=== PATIENT | male | born 1950 | race Caucasian/White ===

== ENCOUNTER 2022-08-10 08:13 | Emergency (ER) | payer MEDICARE, OTHER, SELFPAY ==
--- NOTE | ~2022-08-10 | CT_ITS ---
EXAMINATION: CT abdomen pelvis w con DATE: 08/10/2022 11:10 INDICATION: Right lower quadrant abdominal pain. TECHNIQUE: Computed tomography (CT) of the abdomen and pelvis was performed with 100 cc Omnipaque 350 intravenous contrast. The dose-length product was 339.45 mGy-cm. Automated exposure control and iter ative reconstruction technique were employed. COMPARISON: None. FINDINGS: Lung bases are unremarkable. Heart size upper normal. No significant pleural or pericardial effusion. Moderate size hiatal hernia one way there are nonobstructing left renal stones. There is asymmetrically decreased enhancement of the right kidney which is appears enlarged. There is right perinephric fluid/stranding. There is right hydroureteronephrosis. There is an obstructing 4 m m distal right ureteral stone. Nonobstructive bowel gas pattern. There are gallstones. There is fatty infiltration of the liver. There is a duodenal diverticulum. There is a fat-containing left inguinal hernia. There is mild osteoarthritis of the hips. There is moderate lumbar spondylosis. IMPRESSION: 1. Obstructing 4 mm distal right ureteral stone with right hydroureteronephrosis and right perinephri c fluid/edema. 2: Nonobstructing left nephrolithiasis. 3: Cholelithiasis. 4: Moderate size hiatal hernia. Reviewed, dictated and finalized at location B. TIONAL SERVICES SPECIALIST IMPRESSION: 1. Obstructing 4 mm distal right ureteral stone with right hydroureteronephrosi s and right perinephric fluid/edema. 2: Nonobstructing left nephrolithiasis. 3: Cholelithiasis. 4: Moderate size hiatal hernia.
--- NOTE | ~2022-08-10 | XR_ITS ---
XR abdomen/kub 1V 08/10/2022 12:09 INDICATION: Distal right ureteral stone on prior CT TECHNIQUE: KUB COMPARISON: CT dated 08/10/2022 FINDINGS: Bowel gas pattern is normal. There is no evidence of free air, mass, organomegaly, ascites or obstruction. There is right hydronephrosis with ureter containing a standing column of contrast t o the level of the right UVJ. The bones appear intact. IMPRESSION: 1: Mild right hydronephrosis.. Reviewed, dictated and finalized at location B. IN[employer] M[employer] OPERATOR
[2022-08-10 08:16] VITALS: BP 185/92; PULSE 71; RESP 18; TEMP 36.6; O2SAT 99
--- NOTE | 2022-08-10 08:56 | ED.BACK ---
HPI - Back Pain/Injury General Chief Complaint: Back Pain/Injury Stated Complaint: flank pain Time Seen by Provider: 08/10/22 08:55 Source: patient Mode of arrival: ambulatory Limitations: no limitations History of Present Illness HPI Narrative: Patient is a 72 yo male with a history of diverticulitis, HTN, presenting to the ER for evaluation of right lower quadrant abdominal pain and right-sided flank pain. Pain is dull, aching in nature, at times sharp. It does radiate into the RLQ. Patient with associated nausea, dry heaving. He denies fever or chills. Patient reports history of chronic lower back pain, states no recent heavy lifting, bending injury, fall. Patient reports this pain is different than typical lower back pain. He denies focal weakness or numbness. He denies ripping or tearing sensation into the flank. He denies radiation of pain into the testicle. She denies significant abdominal distention. No dysuria or hematuria. Related Data Allergies Allergy/AdvReac Type Severity Reaction Status Date / Time No Known Allergies Allergy Verified 08/10/22 09:18 Review of Systems Review of Systems: CONSTITUTIONAL: Denies fever, chills, or sweats. EYES: Denies visual changes, redness, or discharge. ENT: Denies rhinorrhea, congestion, sore throat, or otalgia. CARDIOVASCULAR: Denies chest pain, palpitations, or edema. RESPIRATORY: Denies cough or dyspnea. GASTROINTESTINAL: Reports right lower quadrant abdominal pain, nausea, vomiting, reports right flank pain GENITOURINARY: Denies dysuria or hematuria. SKIN: Denies rash or itching. MUSCULOSKELETAL: Reports chronic lower back pain, denies other joint pain, or myalgia. NEUROLOGIC: Denies headache, numbness, or weakness. FOR[facility]LY [facility] Past Medical History Medical History (Updated 08/10/22 @ 12:33 by Melonie Diaz MD) Chronic lower back pain Diverticulitis Hypertension Social History Social History (Updated 08/10/22 @ 09:34 by Melonie Diaz MD) Alcohol intake: never Substance use: never Living arrangements: with family Gender identity (if verbalized by the patient): Male Exam Narrative: GENERAL: Awake, alert, conversant, patient comfortable appearing, pacing the room HEAD: Normocephalic, atraumatic. EYES: PERRLA and EOMI. ENT: Nares clear, no rhinorrhea or epistaxis. Mucous membranes moist. NECK: Supple. CHEST: No respiratory distress, breathing even and non labored HEART: Regular rate, sinus rhythm ABDOMEN:Non distended, right lower quadrant tenderness, mild right CVA tenderness, no left lower quadrant tenderness, no rebound, rigidity or guarding EXTREMITIES: Normal range of motion. No edema. SKIN: Warm, dry, no rash. NEURO:No focal deficits. Alert and oriented x3 Course Vital Signs Vital signs: Vital Signs Temperature 36.6 C 08/10/22 08:16 Pulse Rate 71 08/10/22 08:16 Respiratory Rate 18 08/10/22 08:16 Blood Pressure 185/92 H 08/10/22 08:16 Pulse Oximetry 99 08/10/22 08:16 Oxygen Delivery Room Air 08/10/22 08:16 Temperature 36.6 C 08/10/22 08:16 Pulse Rate 71 08/10/22 08:16 Respiratory Rate 18 08/10/22 08:16 Blood Pressure 185/92 H 08/10/22 08:16 Pulse Oximetry 99 08/10/22 08:16 Oxygen Delivery Room Air 08/10/22 08:16 MDM - Back Pain/Injury MDM Narrative Medical decision making narrative: Medical decision making narrative: -Presentation: Patient is 72-year-old male presenting for evaluation of right abdominal pain, right flank pain. At the time of assessment, patient is uncomfortable appearing, hypertensive. IV access obtained and labs were drawn. -DDX includes but is not limited to: Renal colic, perforation, obstruction, pyelonephritis, UTI -Co-morbidities complicating care: -Social determinants of health: -External Chart Review: External EMR record reviewed, no significant amount of additional records -Hx from independent Sources: Daughter is at bedside -Discussion of Management/
[2022-08-10 09:45] LABS: Alanine Aminotransferase 24 U/L (6-50); Albumin Level 4.5 g/dL (3.5-5.1); Alkaline Phosphatase 91 U/L (38-126); Anion Gap 9 mmol/L (8-16); Aspartate Amino Transferase 29 U/L (17-59); Bilirubin,Total 0.7 mg/dL (0.2-1.3); Blood Urea Nitrogen 18 mg/dL (9-20); Calcium 9.2 mg/dL (8.4-10.2); Carbon Dioxide 24 mmol/L (22-30); Chloride 106 mmol/L (98-107); Estimated CRCL calculation 45 ml/min; Estimated Glomerular Filt Rate 60; Glucose 148 mg/dL (65-110); Potassium 3.8 mmol/L (3.4-5.0); Sodium 139 mmol/L (137-145)
[2022-08-10] MEDS: SODIUM CHLORIDE 0.9% IV 1,000 ML 999 ML IV CONT (10:02)
[2022-08-10] MEDS: ONDANSETRON INJ 4 MG/2 ML VIAL IV PUSH (10:02)
[2022-08-10] MEDS: MORPHINE SULFATE (*CRX) 4 MG/ML INJ IV PUSH ×2 (10:02→10:31)
[2022-08-10 10:10] LABS: Basophils Absolute Auto 0.1 K/mm3 (0.0-0.1); Basophils Percent Auto 0.8 % (0.2-1.2); Eosinophils Absolute Auto 0.1 K/mm3 (0-0.3); Eosinophils Percent Auto 0.7 % (0-4.4); Hematocrit 46.2 % (42.0-52.0); Hemoglobin 15.1 g/dL (14.0-18.0); Immature Granulocyte Absolute 0.07 K/mm3 (0.00-0.031); Immature Granulocyte Percent A 0.6 % (0-0.5); Lymphocytes Percent Auto 14.4 % (18.3-44.2); Mean Corpuscular HGB Conc 32.7 g/dl (32-36); Mean Corpuscular Volume 88.7 fl (80-100); Mean Platelet Volume 11.4 fl (7.4-10.4); Monocytes Absolute Auto 0.5 K/mm3 (0.1-0.6); Neutrophils Absolute Auto 9.4 K/mm3 (1.3-6.7); Neutrophils Percent Auto 79.5 % (45.5-73.1); Platelet Count Result 232 k/mm3 (150-375); Red Blood Count 5.21 M/mm3 (4.6-6.20); Red Cell Distribution Width 12.8 % (11.5-14.5); White Blood Count 11.8 K/mm3 (4.5-10.0)
--- NOTE | 2022-08-10 10:34 | PC.NURSE ---
pt continues to c/o pain 03/28. states is worse s/p administration of morphine. pt refusing ct until pain is improved.
[2022-08-10 10:56] LABS: Lipase 72 U/L (23-300)
[2022-08-10 11:38] LABS: Add Urine Microscopic? YES; Appearance Urine Clear (Clear); Bilirubin Urine Negative (Negative); Blood Urine 2+ (Negative); Color Urine Yellow (Yellow); Glucose Urine UA Negative (Negative); Ketones Urine 1+ mg/dL (Negative); Leukocyte Esterase Ur Negative LEU/UL (Negative); Nitrate Urine Negative (Negative); Protein Urine Negative (Negative); Specific Grav Ur 1.015 (1.001-1.035); Urobilinogen Urine 0.2 mg/dL (<2.0); pH Urine 5.5 (5.0-9.0)
[2022-08-10 11:44] LABS: Mucus Urine Rare /lpf; RBC Urine 21-50 /hpf (0-2); WBC Urine 0-3 /hpf
[2022-08-10] MEDS: KETOROLAC 15 MG/ML VIAL (*BKC) IV PUSH (13:37)
--- NOTE | 2022-08-10 13:37 | PC.NURSE ---
pt states pain is much improved. able to lay flat on stretcher. meds given per order. pending discharge.
== END 2022-08-10 14:45 | disposition home or self-care (01) ==
PROVIDERS: Emergency Provider Emergency Medicine
DX: N13.2 Hydronephrosis with renal and ureteral calculous obstruction (principal); I10 Essential (primary) hypertension; K80.20 Calculus of gallbladder without cholecystitis without obstruction; K44.9 Diaphragmatic hernia without obstruction or gangrene
CPT/HCPCS: 36415; 74018; 74177; 80053; 81001; 83690; 85025; 96361; 96374; 96375; 99284; J1885; J2270; J2405; J7030; Q9967

== ENCOUNTER 2024-02-08 09:28 | Outpatient (CLI) | payer MEDICARE, OTHER, SELFPAY ==
--- NOTE | ~2024-02-08 | MR_ITS ---
EXAMINATION: MR shoulder LT wo con DATE: 02/08/2024 10:24 INDICATION: Left shoulder pain and strain of the rhomboid muscle. TECHNIQUE: Magnetic resonance imaging (MRI) of the affected shoulder was performed without intravenou s contrast. Sequences included axial PD-weighted FS FSE, coronal oblique PD-weighted FS FSE, coronal oblique T2-weighted FS FSE, sagittal PD-weighted FS FSE, and sagittal T1-weighted SE. COMPARISON: None. FINDINGS: Coracoacromial arch: The acromion undersurface is mildly convex in morphology (type IV). Multiple small foci of susceptibi lity artifact along the margins of the acromion and acromioclavicular joint suggesting prior acromiop lasty and distal clavicle resection. Rotator cuff: Mild supraspinatus and infraspinatus tendinopathy without discrete tear. The teres minor and subscapu julianna tendons are normal. Normal rotator cuff muscle bulk and signal. Biceps tendon, glenoid labrum and glenohumeral cartilage: Long head of the biceps tendon is normal. Small marginal osteophytes along the anteroinferior rim of the glenoid which partially replaces the anteroinferior glenoid labrum. Glenohumeral cartilage is nor mal. Fluid: Physiologic amount of fluid in the glenohumeral joint and biceps tendon sheath. No loose osteochondr al bodies. Abnormal fluid signal in the subacromial/subdeltoid bursa to suggest bursitis. Bones: There are low signal intensity bone islands at the humeral head and glenoid. Marrow signal is otherwi se unremarkable with no fracture or pathologic marrow replacing process. IMPRESSION: 1. Mild supraspinatus infraspinatus tendinopathy without tear. 2. Chronic degeneration of the anteroinferior glenoid labrum which is partially replaced by marginal osteophytes arising from the anteroinferior rim of the glenoid. Reviewed, dictated and finalized at location A. IMPRESSION: 1. Mild supraspinatus infraspinatus tendinopathy without tear. 2. Chronic degeneration of the anteroinferior glenoid labrum which is partially replaced by marginal osteophytes arising from the anteroinferior rim of the gl enoid.
== END 2024-02-08 09:29 ==
LOC: MICIMG 09:29
PROVIDERS: PCP Hospitalist; Visit Provider Nurse Practitioner
DX: S29.012D Strain of muscle and tendon of back wall of thorax, subsequent encounter (principal)
CPT/HCPCS: 73221